=== PATIENT | male | born 1940 | race Caucasian/White ===

== ENCOUNTER 2020-06-22 06:53 | Outpatient (NON) | payer MEDICARE, SELFPAY ==
[2020-06-23 13:44] LABS: SARS-CoV-2 RNA PCR Positive
== END 2020-06-22 06:54 ==
PROVIDERS: PCP Family Medicine; Visit Provider Nurse Practitioner Family
DX: U07.1 COVID-19 (principal)
CPT/HCPCS: 87635; C9803; U0003

== ENCOUNTER → 2020-11-05 10:08 | Outpatient (CLI) | payer MEDICARE, SELFPAY ==
--- NOTE | ~2020-11-05 | XR_ITS ---
EXAMINATION: XR abdomen/kub 1V EXAM DATE: 11/05/2020 10:27 INDICATION: M54.9 - Dorsalgia, unspecified. TECHNIQUE: Frontal projection(s) of the abdomen for interpretation. There is no prior study for carmen peterson. FINDINGS: There is expected amount of colonic stool and gas. No small bowel dilation, nonobstructiv e bowel gas pattern. There are no suspicious calcifications identified. There is no organomegaly suspected. Mild thoracal lumbar dextroscoliosis. Lung bases are clear. There are cholecystectomy cl ips. 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 IMPRESSION: Unremarkable abdomen x-ray exam. Reviewed, dictated and finalized at location A.
--- NOTE | ~2020-11-05 | XR_ITS ---
EXAMINATION: XR lumbar spine 2-3V EXAM DATE: 11/05/2020 10:27 INDICATION: Back pain. TECHNIQUE: Lumber spine frontal, lateral, lateral L5-S1 projections for interpretation. There is no prior study for comparison. FINDINGS: There is 2 mm anterolisthesis L4 on L5. Moderate disc disease L3-4 and L1-2, mild at the o ther lumbar levels. Moderate to severe facet arthropathy L3-4 and L4-5, less at the other lumbar leve ls. Mild thoracal lumbar dextroscoliosis. There are no acute fractures identified. Sacrum, sacroiliac joints, sacral arcuate lines are intact. There are cholecystectomy clips. Mild scattered aortic areli rial sclerosis. IMPRESSION: Overall moderate lumbar spondylosis. Reviewed, dictated and finalized at location A.
== END ==
PROVIDERS: Visit Provider Physician Assistant
DX: M54.9 Dorsalgia, unspecified (principal); R10.9 Unspecified abdominal pain; M47.816 Spondylosis without myelopathy or radiculopathy, lumbar region
CPT/HCPCS: 72100; 74018